=== PATIENT | male | born 1970 | race Caucasian/White ===

== ENCOUNTER → 2020-02-08 | Outpatient (CLI) | payer OTHER ==
[~2020-02-08] MED LIST: CELE200C PO; TRAM-48 PO
== END | disposition home or self-care (01) ==
LOC: LAB 12:31
PROVIDERS: ATTEND Nurse Anesthetist, Certified Registered
DX: Z01.812 Encounter for preprocedural laboratory examination (principal); Z20.828 Contact with and (suspected) exposure to other viral communicable diseases
CPT/HCPCS: U0003-CS

== ENCOUNTER → 2020-02-11 | Day surgery (SDC) | payer OTHER ==
[~2020-02-11] MED LIST changes: +IPRATRPIUM/ALBUTEROL 0.5/2.5MG 3 ML NEBU. NEB PRN; +IV RINGERS SOLUTION,LACTATED 1,000 ML IV SCH; +LIDOCAINE 2% PF 5 ML VIAL. ONE; +MIDAZOLAM HCL PF 2 MG/2 ML VIAL. IV ONE; +ONDANSETRON PF 4 MG/2 ML VIAL. IV PRN; +PROPOFOL 10,000 MCG/ML (20ML) VIAL IV ONE
[2020-02-11 09:48] VITALS: BP 135/85
--- NOTE | 2020-02-12 16:07 | PATHOLOGY ---
[facility] Accession Number: [id number] . 01 Material submitted: . PART A: hepatic flexure - HEPATIC FLEXURE PART B: sigmoid colon - SIGMOID POLYP . 02 Diagnosis: A. Colon biopsy, hepatic flexure: - Tubular adenoma. . B. Colon biopsy, sigmoid polyp: - Hyperplastic polyp. . (JPM:jose; 02/12/2020) R 02/12/2020 1033 Local . 02 Comment: There is no high-grade dysplasia or evidence of malignancy. (JPM:jose; 02/12/2020) . 02 Electronically signed: . Norman Castelna MD, Pathologist NPI- [id number] . 01 Gross description: . A. Received in formalin labeled "Damion, Brett, hepatic flexure" is a nunez-brown soft tissue fragment measuring 0.3 x 0.3 x 0.1 cm. The specimen is submitted entirely in A1. . B. Received in formalin labeled "Damion, Brett, sigmoid polyp" is a nunez-brown soft tissue fragment measuring 0.4 x 0.3 x 0.1 cm. The specimen is submitted entirely in B1. ([facility]; 02/11/2020) [facility] 02/11/2020 1934 Local . 02 Pathologist provided ICD-10: D12.3, K63.5 . 02 CPT . 676312, [id number] Specimen Comment: A courtesy copy of this report has been sent to [phone] Specimen Comment: [id number] Specimen Comment: Report sent to / DR EDWARDS Performed at: [address], [place] [id number] MD Kelvin Beth MD Phone: [phone] Performed at: [address] [id number] MD Norman Castelan MD Phone: [phone]
== END | disposition home or self-care (01) ==
LOC: SURG 07:32
PROVIDERS: ATTEND Internal Medicine Gastroenterology
DX: Z12.11 Encounter for screening for malignant neoplasm of colon (principal); D12.3 Benign neoplasm of transverse colon; K57.30 Diverticulosis of large intestine without perforation or abscess without bleeding; K63.89 Other specified diseases of intestine; E66.9 Obesity, unspecified; M19.90 Unspecified osteoarthritis, unspecified site; I10 Essential (primary) hypertension; Z79.899 Other long term (current) drug therapy; Z68.37 Body mass index [BMI] 37.0-37.9, adult; Z86.718 Personal history of other venous thrombosis and embolism; Z98.890 Other specified postprocedural states
CPT/HCPCS: 45380; 88305; J2001; J2704; J7120

== ENCOUNTER 2021-03-05 11:43 | Emergency (ER) | payer OTHER ==
[~2021-03-05] VITALS: Ht 188 cm; Wt 161.1 kg
[2021-03-05 11:43] VITALS: BP 195/121
[~2021-03-05 11:43] MED LIST changes: -IPRATRPIUM/ALBUTEROL 0.5/2.5MG 3 ML NEBU. NEB PRN; -IV RINGERS SOLUTION,LACTATED 1,000 ML IV SCH; -LIDOCAINE 2% PF 5 ML VIAL. ONE; -MIDAZOLAM HCL PF 2 MG/2 ML VIAL. IV ONE; -ONDANSETRON PF 4 MG/2 ML VIAL. IV PRN; -PROPOFOL 10,000 MCG/ML (20ML) VIAL IV ONE
[2021-03-05] MEDS ORDERED: HYDROcodone/APAP 5/325MG 1 TAB TABLET PO ONE (12:15)
[2021-03-05] MEDS ORDERED: ORPHENADRINE CITRATE 60 MG/2 ML VIAL. IM ONE (12:15)
--- NOTE | 2021-03-05 12:20 | PHYS DOC ---
Past History Past Medical History: Arthritis, Hypertension Additional Past Medical Histor: obese Additional Past Surgical Histo: L4-5 lami, left hip replacement Alcohol Use: Occasionally General Adult EDM: Chief Complaint: BACK PAIN - NO INJURY HPI: HPI: Patient is a 50-year-old male today that presents with low back pain. Patient states that last weekend he did a large amount of lifting and yard work and over the past week he has had low back pain that has gotten worse. He states in 2012 he had an L4-L5 discectomy and has not had any significant back problems since that time. Over the past week he has had increased soreness and pain in his back and today he presents with unable to control this at home. Patient denies bowel or bladder control issues, denies numbness tingling or sensation differences in his legs by Dr. Nidia ortega. Patient does take Celebrex on a daily basis for arthritic pain. Review of Systems: Review of Systems: Constitutional: Denies fever or chills Eyes: Denies change in visual acuity HENT: Denies nasal congestion or sore throat Respiratory: Denies cough or shortness of breath Cardiovascular: Denies chest pain or edema GI: Denies abdominal pain, nausea, vomiting, bloody stools or diarrhea : Denies dysuria Musculoskeletal: back pain Integument: Denies rash Neurologic: Denies headache, focal weakness or sensory changes Endocrine: Denies polyuria or polydipsia Lymphatic: Denies swollen glands Psychiatric: Denies depression or anxiety Allergies: Allergies: Allergies Coded Allergies Type Severity Reaction Last Updated Verified No Known Drug Allergies 02/09/20 No Physical Exam: PE: Constitutional: Obese male in moderate amount of distress HENT: Normocephalic, atraumatic, bilateral external ears normal, oropharynx mo ist, no oral exudates, nose normal. [] Eyes: PERRLA, EOMI, conjunctiva normal, no discharge. [] Neck: Normal range of motion, no tenderness, supple, no stridor. [] Cardiovascular:Heart rate regular rhythm, no murmur [] Lungs & Thorax: Bilateral breath sounds clear to auscultation [] Abdomen: Bowel sounds normal, soft, no tenderness, no masses, no pulsatile masses. [] Skin: Warm, dry, no erythema, no rash. [] Back: Tenderness over L2-4 areas, no step off or crepitus noted, tenderness over left side of spinal area as well, MS in nature. Extremities: No tenderness, no cyanosis, no clubbing, ROM intact, no edema. [] Neurologic: Alert and oriented X 3, normal motor function, normal sensory funct ion, no focal deficits noted. [] Psychologic: Affect normal, judgement normal, mood normal. [] Current Patient Data: Vital Signs: Vital Signs Date Time Temp Pulse Resp B/P (MAP) Pulse Ox O2 Delivery O2 Flow Rate FiO2 03/05/21 11:43 98.0 77 18 195/121 (145) 96 Room Air EKG: EKG: [] Radiology/Procedures: Radiology/Procedures: [] Heart Score: C/O Chest Pain: N/A Course & Med Decision Making: Course & Med Decision Making Pertinent Labs and Imaging studies reviewed. (See chart for details) [1340 reassessed patient patient states pain is improved, states 3-4 out of 10. Patient will be sent home for follow-up with his primary care physician regarding to his back pain, patient states he has tramadol at home for pain, patient to take that for pain relief and/or Tylenol or ibuprofen [id number]. We will give patient Flexeril to be taken at home for pain with instructions not to drive or operate heavy machinery with that. While at bedside blood pressure was noted to be 220/103, patient was instructed to follow-up with his primary care physician at [facility] for evaluation of blood pressure] Lavinia Disclaimer: Lavinia Disclaimer: This electronic medical record was generated, in whole or in part, using a voice recognition dictation system. Departure Departure: Impression: Primary Impression: Lumbar back sprain Qualified Codes: S33.5XXA - Sprain of ligaments of lumbar spine, initial encounter Disposition: HOME / SELF CARE / HOMELESS Condition: STABLE Referrals: BRADLEY EDWARDS (PCP) Patient Instructions: Back Pain, Adult Additional Instructions: Take home Ultram as labeled directed or [id number] Tylenol or ibuprofen as labeled directed for pain Take Flexeril as needed for muscle spasm, do not drive or operate heavy machinery while taking this medication may cause dizziness Ice to back area that is painful 20 minutes on 3-4 times daily Follow-up with your primary care physician on Saturday by phone to get an appointment towards the end of the week for evaluation of your back pain Scripts Cyclobenzaprine Hcl (CYCLOBENZAPRINE HCL) 10 Mg Tablet 1 TAB PO TID for muscle spasm, #10 TAB Prov: TANYA ABDULLAHI APRN 03/05/21 TANYA ABDULLAHI APRN Mar 05, 2021 12:20
[2021-03-05] MEDS ORDERED: CYCL10TA19 PO (13:50)
== END 2021-03-05 14:03 | disposition home or self-care (01) ==
LOC: ER 11:43
DX: S33.5XXA Sprain of ligaments of lumbar spine, initial encounter (principal); M19.90 Unspecified osteoarthritis, unspecified site; I10 Essential (primary) hypertension; E66.9 Obesity, unspecified; Z96.642 Presence of left artificial hip joint; Z68.42 Body mass index [BMI] 45.0-49.9, adult; X50.9XXA Other and unspecified overexertion or strenuous movements or postures, initial encounter; Y93.89 Activity, other specified; Y92.89 Other specified places as the place of occurrence of the external cause; Y99.8 Other external cause status
CPT/HCPCS: 96372; 99284; J2360